=== PATIENT | female | born 1965 | race Caucasian/White ===

== ENCOUNTER 2017-06-27 22:05 | Emergency (ER) | payer SELFPAY ==
[~2017-06-27] VITALS: Ht 170.2 cm; Wt 154.2 kg
[2017-06-27 22:12] VITALS: BP 134/75
--- NOTE | 2017-06-27 23:14 | NUR ---
PT AMBULATED TO CHAIR E
--- NOTE | 2017-06-27 23:29 | NUR ---
PT C/O COUGH FOR 4 DAYS W/ HEADACHE. BL UPPER LOBES CLEAR, BL LOWER LOBES DIMINISHED. PT STATES SHE HAS PRODUCTIVE WHITE, PHELGM COUGH. PT STATES SHE "RAN OUT OF MY HEADACHE MEDICATION" AND HAS BEEN TAKING NAPROXEN AND MOTRIN AT HOME W/ MINIMAL RELIEF. HEADACHE PAIN 7/10, NON RADIATING AT THIS TIME. HX MIGRAINES, ARTHRITIS NKA
[2017-06-28 02:04] VITALS: BP 134/75
--- NOTE | 2017-06-28 02:04 | NUR ---
Patient discharged with v/s stable and decreased pain. Written and verbal after care instructions given and explained. Patient alert, oriented and verbalized understanding of instructions. Ambulatory with steady gait. All questions addressed prior to discharge. ID band removed. Patient advised to follow up with PMD. Rx of Butrophanol Tartrate and Codeine Phosphate/Guaifenesin given. Patient educated on indication of medication including possible reaction and side effects. Opportunity to ask questions provided and answered.
== END 2017-06-28 02:04 | disposition home or self-care (01) ==
LOC: MED 22:05
DX: J06.9 Acute upper respiratory infection, unspecified (principal); G43.909 Migraine, unspecified, not intractable, without status migrainosus; M19.90 Unspecified osteoarthritis, unspecified site; F17.210 Nicotine dependence, cigarettes, uncomplicated; Z90.49 Acquired absence of other specified parts of digestive tract
CPT/HCPCS: 71045; 99283

== ENCOUNTER 2017-11-23 21:10 | Emergency (ER) | payer SELFPAY ==
[~2017-11-23] VITALS: Ht 170.2 cm; Wt 165.6 kg
[2017-11-23 21:16] VITALS: BP 129/77
--- NOTE | 2017-11-23 21:21 | NUR ---
52/F W C/O PRODUCTIVE COUGH AND HEADACHE X 5 DAYS. REPORTS CLEAR SPUTUM. ALL LUNG SOUNDS CBTA, 18RR EVEN AND UNLABORED. DENIES SOB/CP, FEVER/CHILLS. PMH: ARTRHITIS,MIGRAINES
--- NOTE | 2017-11-23 21:21 | NUR ---
PATIENT AMBULATED TO ER BED 5
--- NOTE | 2017-11-23 21:40 | NUR ---
PT REFUSING XRAY
--- NOTE | 2017-11-23 22:22 | NUR ---
PATIENT LEFT WITHOUT BEING SEEN BY DR. TAYLOR. NO FURTHER CARE PROVIDED FOR PATIENT.
== END 2017-11-23 22:22 | disposition left against medical advice (07) ==
LOC: MED 21:10
DX: R05 Cough (principal); R51 Headache; Z53.21 Procedure and treatment not carried out due to patient leaving prior to being seen by health care provider